=== PATIENT | female | born 1975 | race Native Hawaiian/Other Pacific Islander ===

== ENCOUNTER 2022-09-21 21:23 | Emergency (ER) | payer OTHER ==
[~2022-09-21] VITALS: Ht 157.5 cm; Wt 91.6 kg
[2022-09-21 22:00] VITALS: TEMP 98.6
[2022-09-22 00:48] VITALS: BP 160/68
== END 2022-09-22 00:55 | disposition home or self-care (01) ==
LOC: ED 21:23
DX: J20.9 Acute bronchitis, unspecified (principal); Z20.822 Contact with and (suspected) exposure to COVID-19; F17.210 Nicotine dependence, cigarettes, uncomplicated
CPT/HCPCS: 87502; 87635; 87651; 94664; 99282; U0003